=== PATIENT | male | born 1995 | race Caucasian/White ===

== ENCOUNTER 2017-06-26 15:06 | Emergency (ER) | payer MEDICAID ==
[~2017-06-26] VITALS: Ht 180.3 cm; Wt 62.1 kg
[2017-06-26 15:06] VITALS: BP_SYST 139
--- NOTE | 2017-06-26 15:17 | NUR ---
Pt BIB BLS, placed to ER Hallway in stable condition.
--- NOTE | 2017-06-26 15:49 | NUR ---
Patient has been seen and evaluated by Christine GAN.
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
--- NOTE | 2017-06-26 16:35 | NUR ---
Patient's mother in to see patient. update given, questions answered-awaiting lab/CT results. Patient's mother left but will return shortly.
--- NOTE | 2017-06-26 16:46 | NUR ---
X-ray at bedside for films. Will continue to observe and assess
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
--- NOTE | 2017-06-26 16:55 | NUR ---
Lab here for blood draw, assessment remains unchanged
--- NOTE | 2017-06-26 17:00 | NUR ---
Patient moved to bed 8, comfort measures provided. Awaiting lab/X-ray results and dispo. Will continue to observe and assess
[2017-06-26 17:02] LABS: BARBITURATE, URINE POSITIVE (NEG <=200)
[2017-06-26 17:03] LABS: BENZODIAZEPINE, URINE NEGATIVE (NEG <=150); CANNABINOID, URINE POSITIVE (NEG <=50); COCAINE, URINE NEGATIVE (NEG <=150); METHAMPHETAMINES SCREEN,URINE POSITIVE (NEG <=500); OPIATE, URINE NEGATIVE (NEG <=100); PHENCYCLIDINE SCREEN,URINE NEGATIVE (NEG <=25); UR TRICYCLIC ANTIDEPRESSANTS NEGATIVE (NEG <=300); URINE AMPHETAMINE POSITIVE (NEG <=500); URINE METHADONE NEGATIVE (NEG <=200); URINE OXYCODONE SCREEN NEGATIVE (NEG <=100); URINE PROPOXYPHENE SCREEN NEGATIVE (NEG <=300)
[2017-06-26 17:09] LABS: BASOPHILS # (AUTO) 0.2 K/uL (0.0-0.2); BASOPHILS % (AUTO) 1.9 % (0.0-2.0); EOSINOPHILS # (AUTO) 0.8 K/uL (0.0-0.4); EOSINOPHILS % (AUTO) 7.9 % (0.0-4.0); HEMOGLOBIN 15.1 g/dL (14.0-18.0); LYMPHOCYTES # (AUTO) 1.8 K/uL (1.0-5.5); LYMPHOCYTES % (AUTO) 19.2 % (20.5-51.5); MEAN CORPUSCULAR HEMOGLOBIN 31 pg (27-31); MEAN CORPUSCULAR HGB CONC 34 % (32-36); MEAN CORPUSCULAR VOLUME 93 fL (79.0-98.0); MONOCYTES # (AUTO) 0.8 K/uL (0.0-1.0); PLATELET COUNT (AUTO) 279 K/uL (130-430); RED BLOOD CELL COUNT(AUTO) 4.85 MIL/uL (4.2-6.2); RED CELL DISTRIBUTION WIDTH 11.6 % (9.0-15.0); WHITE BLOOD COUNT (AUTO) 9.6 K/uL (4.5-11.0)
[2017-06-26 17:18] LABS: CALCIUM 8.3 mg/dL (8.4-11.0); CREATININE 0.81 mg/dL (0.55-1.30); POTASSIUM 3.4 mmol/L (3.5-5.1)
[2017-06-26 17:25] LABS: ALBUMIN 3.5 g/dL (3.4-4.8); TOTAL BILIRUBIN 0.3 mg/dL (0.0-1.0)
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
[2017-06-26] MEDS ORDERED: POTASSIUM CHLORIDE 10 MEQ TAB.PRT.SR PO ONE (18:45)
--- NOTE | 2017-06-26 18:51 | NUR ---
YRN Mendez are at bedside interviewing the patient. At this time he is talking with them, not yelling or acting out.
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
--- NOTE | 2017-06-26 19:16 | NUR ---
Patient given written and verbal discharge instructions and verbalizes understanding. ER MD discussed with patient the results and treatment provided. Patient in stable condition. ID arm band removed. Rx of Tylenol given. Patient educated on pain management and to follow up with PMD. Pain Scale 5. Opportunity for questions provided and answered.
[2017-06-26 19:48] LABS: PHENOBARBITAL 7.3 ug/mL (15.0-40.0)
== END 2017-06-26 19:14 | disposition home or self-care (01) ==
LOC: SED 15:06
DX: S93.491A Sprain of other ligament of right ankle, initial encounter (principal); S06.9X9A Unspecified intracranial injury with loss of consciousness of unspecified duration, initial encounter; Y04.2XXA Assault by strike against or bumped into by another person, initial encounter; Y93.89 Activity, other specified; Y92.89 Other specified places as the place of occurrence of the external cause; Y99.8 Other external cause status
CPT/HCPCS: 36415; 70450-TC; 80053; 80184-TC; 80307; 85025; 99285